=== PATIENT | female | born 1985 | race Two or more races ===

== ENCOUNTER 2018-08-23 20:07 | Emergency (ER) | payer MEDICAID, OTHER ==
[~2018-08-23] VITALS: Ht 154.9 cm; Wt 93.4 kg
--- NOTE | 2018-08-23 20:15 | NUR ---
PT [id number] C/O "FELT A SEIZURE COMING, SAT ONTO FLOOR. CANT REMEMBER AFTER" +N/V -DIZZY AOX4. -KO -TRAUMA. 0/10 PAIN. NAD NOTED. RESP EVEN AND UNLABORED. PT ON MONITOR IN BED 1. WILL CONTINUE TO MONITOR.
[2018-08-23] MEDS ORDERED: LORAZEPAM INJ 2 MG/ML VIAL IVP ONE (20:30)
[2018-08-23 20:32] VITALS: BP 123/80
--- NOTE | 2018-08-23 20:35 | NUR ---
FATHER AT BEDSIDE
--- NOTE | 2018-08-23 20:36 | NUR ---
PHLEB AT BEDSIDE FOR LAB DRAW
[2018-08-23 20:50] LABS: BASOPHILS # (AUTO) 0.1 /CMM (0.0-0.2); BASOPHILS % (AUTO) 1.1 % (0.0-2.0); EOSINOPHILS % (AUTO) 3.4 % (0.0-6.0); HEMATOCRIT 41 % (33-45); HEMOGLOBIN 14.2 g/dL (11.5-14.8); LYMPHOCYTES # (AUTO) 3.3 /CMM (0.8-4.8); LYMPHOCYTES % (AUTO) 36.6 % (20.0-44.0); MEAN CORPUSCULAR HGB CONC 35 g/dl (31.0-36.0); MEAN CORPUSCULAR VOLUME 90 fL (82-100); MONOCYTES # (AUTO) 0.5 /CMM (0.1-1.30); MONOCYTES % (AUTO) 5.9 % (2.0-12.0); NEUTROPHILS # (AUTO) 4.8 /CMM (1.8-8.9); PLATELET COUNT (AUTO) 304 /CMM (150-450); WHITE BLOOD COUNT (AUTO) 9.1 K/uL (4.3-11.0)
[2018-08-23 20:58] LABS: CALCIUM, SERUM 8.8 mg/dL (8.5-10.1); POTASSIUM 3.9 mmol/L (3.5-5.1)
[2018-08-23] MEDS ORDERED: LORAZEPAM INJ 2 MG/ML VIAL ONE (21:06)
--- NOTE | 2018-08-23 21:27 | NUR ---
IV removed. Catheter intact and site benign. Pressure and 4x4 applied to site. No bleeding noted.Patient discharged to home in stable condition. Written and verbal after care instructions given. Patient verbalizes understanding of instruction. PT AMBULATORY WITH STEADY GAIT.
== END 2018-08-23 21:29 | disposition home or self-care (01) ==
LOC: ER 20:09
DX: G40.909 Epilepsy, unspecified, not intractable, without status epilepticus (principal); Z88.5 Allergy status to narcotic agent
CPT/HCPCS: 36415; 80048-TC; 84702-TC; 85025-TC; J2060